=== PATIENT | male | born 1935 | race Caucasian/White ===

== ENCOUNTER 2020-04-08 15:55 | Emergency (ER) | payer MEDICARE ==
[~2020-04-08] VITALS: Ht 170.2 cm; Wt 96.0 kg
[2020-04-08 15:58] VITALS: BP 140/60
[2020-04-08] MEDS ORDERED: BACITRACIN 15GM TUBE TOP ONE ×2 (16:45→18:00)
[2020-04-08] MEDS ORDERED: ACETAMINOPHEN 325MG TABLET PO ONE (17:30)
[2020-04-08] MEDS: BACITRACIN ZINC OINT UDPKT TOP NR ×2 (17:47→18:44)
== END 2020-04-08 19:19 | disposition home or self-care (01) ==
LOC: ER 15:55
DX: S40.021A Contusion of right upper arm, initial encounter (principal); E11.9 Type 2 diabetes mellitus without complications; I10 Essential (primary) hypertension; W18.09XA Striking against other object with subsequent fall, initial encounter; Y93.89 Activity, other specified; Y92.89 Other specified places as the place of occurrence of the external cause; Z95.0 Presence of cardiac pacemaker
CPT/HCPCS: 73090; 99283

== ENCOUNTER 2020-04-10 09:37 | Emergency (ER) | payer MEDICARE ==
[~2020-04-10] VITALS: Ht 175.3 cm; Wt 94.0 kg
[2020-04-10 09:52] VITALS: BP 131/51
[2020-04-10] MEDS ORDERED: BACITRACIN ZINC OINT UDPKT TOP ONE (10:15)
== END 2020-04-10 10:47 | disposition home or self-care (01) ==
LOC: ER 09:37
DX: S51.811D Laceration without foreign body of right forearm, subsequent encounter (principal); W18.39XD Other fall on same level, subsequent encounter; J45.909 Unspecified asthma, uncomplicated; J44.9 Chronic obstructive pulmonary disease, unspecified; E11.9 Type 2 diabetes mellitus without complications; Z95.0 Presence of cardiac pacemaker; Z98.890 Other specified postprocedural states
CPT/HCPCS: 99283

== ENCOUNTER 2020-11-22 12:21 | Inpatient (IN) | payer MEDICARE, OTHER, MEDICAID ==
[~2020-11-22] VITALS: Ht 175.3 cm; Wt 94.3 kg
[2020-11-22] MEDS ORDERED: SODIUM CHLORIDE 0.9% 1,000 ML IV ONE (13:15)
[2020-11-22 14:45] LABS: HEMATOCRIT. 36.4 % (42.0-52.0); HEMOGLOBIN. 11.6 g/dL (14.0-18.0); MEAN CORPUSCULAR HEMOGLOBIN 28.8 pg (28.0-32.0); MEAN CORPUSCULAR VOLUME 90.1 fL (80.0-94.0); MEAN PLATELET VOLUME 7.6 fl (7.4-10.4); PLATELET 148 x1000/uL (130-400); RED BLOOD CELL COUNT 4.04 mill/uL (4.7-6.1); RED CELL DISTRIBUTION WIDTH 18.8 % (11.6-14.6)
[2020-11-22 16:36] LABS: PLATELET ESTIMATE NORMAL
[2020-11-22] MEDS ORDERED: DEXTROSE 50% WATER 50ML SYRINGE IV PRN (20:45)
[2020-11-22] MEDS ORDERED: MAGNESIUM/ALUMINUM HYDROXIDE/SIMETHICONE 30ML UDC PO PRN (20:45)
[2020-11-22] MEDS ORDERED: IPRATROPIUM/ALBUTEROL 0.5-3(2.5)MG/3ML NEB NEB PRN (20:45)
[2020-11-22] MEDS ORDERED: NA PHOS,M-B/NA PHOS,DI-BA ENEMA 118ML PR PRN (20:45)
[2020-11-22] MEDS ORDERED: ONDANSETRON HCL 4MG/2ML INJ IV PRN (20:45)
[2020-11-22] MEDS ORDERED: GUAIFENESIN 200MG/10ML SUGAR FREE UDC PO PRN (20:45)
[2020-11-22] MEDS ORDERED: DOCUSATE SODIUM 100MG CAPSULE PO PRN (20:45)
[2020-11-22] MEDS ORDERED: MORPHINE SULFATE 2 MG/ML CPJ (NOT FOR IM USE) IV PRN (20:45)
[2020-11-22] MEDS ORDERED: HYDRALAZINE 20MG/ML VIAL IV PRN (20:45)
[2020-11-22] MEDS ORDERED: DIPHENHYDRAMINE 50MG/ML VIAL IV PRN (20:45)
[2020-11-22] MEDS ORDERED: LORAZEPAM 2MG/ML CPJ IV PRN (20:45)
[2020-11-22] MEDS: BLOOD SUGAR DIAGNOSTIC STRIP TEST SCH (21:00)
[2020-11-22] MEDS: INSULIN LISPRO 100 UNITS/ML SUBCUT SCH (21:00)
[2020-11-22] MEDS: SODIUM CHLORIDE 0.9% INJ 3ML FLUSH IVF SCH (22:00)
[2020-11-23 05:19] LABS: HEMATOCRIT. 38.8 % (42.0-52.0); HEMOGLOBIN. 12.2 g/dL (14.0-18.0); MEAN CORPUSCULAR HEMOGLOBIN 28.4 pg (28.0-32.0); MEAN CORPUSCULAR VOLUME 90.1 fL (80.0-94.0); PLATELET 155 x1000/uL (130-400); RED CELL DISTRIBUTION WIDTH 18.6 % (11.6-14.6)
[2020-11-23 05:44] LABS: CHLORIDE 106 mEq/L (98-107)
[2020-11-23] MEDS: SODIUM CHLORIDE 0.9% INJ 3ML FLUSH IVF SCH ×3 (06:53→21:55)
[2020-11-23] MEDS: BLOOD SUGAR DIAGNOSTIC STRIP TEST SCH ×4 (07:08→20:24)
[2020-11-23] MEDS: INSULIN LISPRO 100 UNITS/ML SUBCUT SCH ×4 (07:33→21:00)
[2020-11-23] MEDS ORDERED: ENOXAPARIN 40MG/0.4ML SYR SUBCUT SCH (09:00)
[2020-11-23 10:46] LABS: PLATELET ESTIMATE NORMAL
[2020-11-23] MEDS: ACETAMINOPHEN 325MG TABLET PO PRN (11:53)
[2020-11-23 12:00] VITALS: BP 109/50
[2020-11-23] MEDS ORDERED: SODIUM POLYSTYRENE SULFONATE 15 G/60 ML BOT PO SCH (14:00)
[2020-11-23 15:45] VITALS: BP 109/50
[2020-11-23 16:00] VITALS: BP 111/70
[2020-11-23 16:01] LABS: CREATINE KINASE 259 IU/L (39-308)
[2020-11-23] MEDS: SODIUM CHLORIDE 0.45% 1,000 ML IV SCH (16:56)
[2020-11-23] MEDS: ENOXAPARIN 30MG/0.3ML SYR SUBCUT SCH (16:57)
[2020-11-23 20:00] VITALS: BP 138/66
[2020-11-24] VITALS: BP 133/65
[2020-11-24] MEDS: SODIUM CHLORIDE 0.45% 1,000 ML IV SCH ×2 (01:43→16:39)
[2020-11-24 04:00] VITALS: BP 99/51
[2020-11-24] MEDS: SODIUM CHLORIDE 0.9% INJ 3ML FLUSH IVF SCH ×3 (05:17→21:49)
[2020-11-24] MEDS: BLOOD SUGAR DIAGNOSTIC STRIP TEST SCH ×4 (07:20→21:11)
[2020-11-24] MEDS: INSULIN LISPRO 100 UNITS/ML SUBCUT SCH ×5 (07:50→21:48)
[2020-11-24 08:00] VITALS: BP 125/57
[2020-11-24] MEDS ORDERED: OMEPRAZOLE 20MG CAPSULE EXTENDED RELEASE PO SCH (11:00)
[2020-11-24] MEDS: ENOXAPARIN 30MG/0.3ML SYR SUBCUT SCH (11:29)
[2020-11-24] MEDS: ACETAMINOPHEN 325MG TABLET PO PRN ×4 (11:35→17:44)
[2020-11-24 12:00] VITALS: BP 105/54
[2020-11-24 12:48] LABS: HEMATOCRIT. 33.2 % (42.0-52.0); HEMOGLOBIN. 10.8 g/dL (14.0-18.0); MEAN CORPUSCULAR HEMOGLOBIN 28.9 pg (28.0-32.0); MEAN CORPUSCULAR VOLUME 89.1 fL (80.0-94.0); PLATELET 149 x1000/uL (130-400); RED BLOOD CELL COUNT 3.73 mill/uL (4.7-6.1); RED CELL DISTRIBUTION WIDTH 18.4 % (11.6-14.6)
[2020-11-24 17:03] LABS: PLATELET ESTIMATE NORMAL
[2020-11-24 20:00] VITALS: BP 94/41
[2020-11-25] VITALS: BP 100/49
[2020-11-25 04:00] VITALS: BP 106/51
[2020-11-25 06:06] LABS: HEMATOCRIT. 35.1 % (42.0-52.0); HEMOGLOBIN. 11.2 g/dL (14.0-18.0); MEAN CORPUSCULAR HEMOGLOBIN 28.2 pg (28.0-32.0); MEAN CORPUSCULAR VOLUME 88.2 fL (80.0-94.0); MEAN PLATELET VOLUME 8.1 fl (7.4-10.4); PLATELET 142 x1000/uL (130-400); RED BLOOD CELL COUNT 3.98 mill/uL (4.7-6.1); RED CELL DISTRIBUTION WIDTH 18.3 % (11.6-14.6)
[2020-11-25] MEDS: INSULIN LISPRO 100 UNITS/ML SUBCUT SCH ×4 (07:50→20:49)
[2020-11-25 08:00] VITALS: BP 120/57
[2020-11-25] MEDS: BLOOD SUGAR DIAGNOSTIC STRIP TEST SCH ×4 (08:05→20:48)
[2020-11-25 10:10] LABS: ANTI-NUCLEAR ANTIBODIES DIRECT Negative (Negative)
[2020-11-25] MEDS: SODIUM CHLORIDE 0.9% 1,000 ML IV SCH ×2 (10:15→23:35)
[2020-11-25 12:00] VITALS: BP 120/57
[2020-11-25 14:09] LABS: PLATELET ESTIMATE NORMAL
[2020-11-25 22:55] VITALS: BP 138/65
[2020-11-26 01:38] VITALS: BP 116/53
[2020-11-26 04:00] VITALS: BP 137/60
[2020-11-26] MEDS: BLOOD SUGAR DIAGNOSTIC STRIP TEST SCH ×4 (06:33→21:00)
[2020-11-26 07:24] LABS: HEMATOCRIT. 32.2 % (42.0-52.0); HEMOGLOBIN. 10.2 g/dL (14.0-18.0); MEAN CORPUSCULAR HEMOGLOBIN 28.2 pg (28.0-32.0); MEAN CORPUSCULAR VOLUME 88.5 fL (80.0-94.0); MEAN PLATELET VOLUME 8.5 fl (7.4-10.4); PLATELET 155 x1000/uL (130-400); RED BLOOD CELL COUNT 3.64 mill/uL (4.7-6.1); RED CELL DISTRIBUTION WIDTH 18.6 % (11.6-14.6)
[2020-11-26] MEDS: INSULIN LISPRO 100 UNITS/ML SUBCUT SCH ×4 (07:41→22:16)
[2020-11-26 08:00] VITALS: BP 130/56
[2020-11-26] MEDS: ENOXAPARIN 40MG/0.4ML SYR SUBCUT SCH (08:57)
[2020-11-26] MEDS: SODIUM CHLORIDE 0.9% INJ 3ML FLUSH IVF SCH ×2 (13:17→22:15)
[2020-11-26 14:30] LABS: PLATELET ESTIMATE NORMAL
[2020-11-26 16:00] VITALS: BP 123/62
[2020-11-26 20:00] VITALS: BP 97/59
[2020-11-26] MEDS: HYDROCODONE/ACETAMINOPHEN 5/325MG TABLET PO PRN (22:15)
[2020-11-27] VITALS: BP 132/57
[2020-11-27 04:00] VITALS: BP 124/55
[2020-11-27] MEDS: SODIUM CHLORIDE 0.9% INJ 3ML FLUSH IVF SCH ×2 (06:36→21:06)
[2020-11-27] MEDS: BLOOD SUGAR DIAGNOSTIC STRIP TEST SCH ×4 (07:20→21:00)
[2020-11-27] MEDS: INSULIN LISPRO 100 UNITS/ML SUBCUT SCH ×4 (07:50→22:00)
[2020-11-27 08:00] VITALS: BP 154/70
[2020-11-27 08:25] LABS: HEMATOCRIT. 32.8 % (42.0-52.0); HEMOGLOBIN. 10.6 g/dL (14.0-18.0); MEAN CORPUSCULAR HEMOGLOBIN 28.6 pg (28.0-32.0); MEAN CORPUSCULAR VOLUME 88.2 fL (80.0-94.0); MEAN PLATELET VOLUME 8.3 fl (7.4-10.4); PLATELET 162 x1000/uL (130-400); RED BLOOD CELL COUNT 3.72 mill/uL (4.7-6.1); RED CELL DISTRIBUTION WIDTH 18.6 % (11.6-14.6)
[2020-11-27] MEDS ORDERED: CEFTRIAXONE 1,000 MG in DEXTROSE 5% WATER 50 ML IV SCH (09:00)
[2020-11-27] MEDS ORDERED: CEFTRIAXONE 1 G PREMIX 50 ML IV SCH (09:00)
[2020-11-27] MEDS: ENOXAPARIN 40MG/0.4ML SYR SUBCUT SCH (11:44)
[2020-11-27] MEDS: CEFTRIAXONE 1,000 MG in DEXTROSE 5% WATER 50 ML IV SCH (11:45)
[2020-11-27] MEDS: HYDROCODONE/ACETAMINOPHEN 5/325MG TABLET PO PRN (12:00)
[2020-11-27 20:00] VITALS: BP 105/60
[2020-11-28] VITALS: BP 105/60
[2020-11-28 04:00] VITALS: BP 127/54
[2020-11-28] MEDS: SODIUM CHLORIDE 0.9% INJ 3ML FLUSH IVF SCH ×3 (05:34→22:42)
[2020-11-28] MEDS: INSULIN LISPRO 100 UNITS/ML SUBCUT SCH ×4 (07:50→20:44)
[2020-11-28 08:00] VITALS: BP 107/61
[2020-11-28] MEDS: BLOOD SUGAR DIAGNOSTIC STRIP TEST SCH ×4 (08:14→20:44)
[2020-11-28] MEDS: ENOXAPARIN 40MG/0.4ML SYR SUBCUT SCH (09:32)
[2020-11-28 12:00] VITALS: BP 105/73
[2020-11-28] MEDS: CEFTRIAXONE 1,000 MG in DEXTROSE 5% WATER 50 ML IV SCH (12:29)
[2020-11-28 16:00] VITALS: BP 107/64
[2020-11-28 16:51] LABS: PLATELET ESTIMATE NORMAL
[2020-11-28 20:00] VITALS: BP 100/58
[2020-11-29] VITALS (7 sets, daily range): BP systolic 74–146; BP diastolic 43–69
[2020-11-29] MEDS: SODIUM CHLORIDE 0.9% INJ 3ML FLUSH IVF SCH ×3 (05:34→21:35)
[2020-11-29] MEDS: BLOOD SUGAR DIAGNOSTIC STRIP TEST SCH ×4 (06:30→21:33)
[2020-11-29] MEDS: INSULIN LISPRO 100 UNITS/ML SUBCUT SCH ×4 (07:31→21:35)
[2020-11-29] MEDS: ENOXAPARIN 40MG/0.4ML SYR SUBCUT SCH (09:59)
[2020-11-29] MEDS: CEFTRIAXONE 1,000 MG in DEXTROSE 5% WATER 50 ML IV SCH (11:24)
[2020-11-29] MEDS: ACETAMINOPHEN 325MG TABLET PO PRN (17:44)
[2020-11-30] VITALS: BP 131/63
[2020-11-30 04:00] VITALS: BP 156/69
[2020-11-30] MEDS: SODIUM CHLORIDE 0.9% INJ 3ML FLUSH IVF SCH ×3 (06:25→21:01)
[2020-11-30] MEDS: BLOOD SUGAR DIAGNOSTIC STRIP TEST SCH ×4 (06:26→21:01)
[2020-11-30 06:30] LABS: HEMATOCRIT. 33.6 % (42.0-52.0); HEMOGLOBIN. 10.8 g/dL (14.0-18.0); MEAN CORPUSCULAR HEMOGLOBIN 28.3 pg (28.0-32.0); MEAN CORPUSCULAR VOLUME 88.2 fL (80.0-94.0); PLATELET 203 x1000/uL (130-400); RED BLOOD CELL COUNT 3.81 mill/uL (4.7-6.1); RED CELL DISTRIBUTION WIDTH 18.3 % (11.6-14.6)
[2020-11-30] MEDS: INSULIN LISPRO 100 UNITS/ML SUBCUT SCH ×4 (07:50→21:00)
[2020-11-30 08:00] VITALS: BP 150/64
[2020-11-30] MEDS: ENOXAPARIN 40MG/0.4ML SYR SUBCUT SCH (08:55)
[2020-11-30] MEDS: CEFTRIAXONE 1,000 MG in DEXTROSE 5% WATER 50 ML IV SCH (11:32)
[2020-11-30 12:00] VITALS: BP 112/60
[2020-11-30 14:52] LABS: ATYPICAL LYMPHOCYTES 1
[2020-11-30 14:53] LABS: PLATELET ESTIMATE NORMAL
[2020-11-30 16:00] VITALS: BP 118/65
[2020-11-30 20:00] VITALS: BP 103/52
[2020-12-01] VITALS: BP 107/68
[2020-12-01 04:00] VITALS: BP_SYST 98; BP_DIAS 61; BP_DIAS 66
[2020-12-01] MEDS: SODIUM CHLORIDE 0.9% INJ 3ML FLUSH IVF SCH ×3 (05:34→22:00)
[2020-12-01] MEDS: BLOOD SUGAR DIAGNOSTIC STRIP TEST SCH ×4 (06:36→20:37)
[2020-12-01 08:00] VITALS: BP 105/60
[2020-12-01] MEDS: ENOXAPARIN 40MG/0.4ML SYR SUBCUT SCH (08:40)
[2020-12-01] MEDS: INSULIN LISPRO 100 UNITS/ML SUBCUT SCH ×4 (08:45→21:44)
[2020-12-01] MEDS: CEFTRIAXONE 1,000 MG in DEXTROSE 5% WATER 50 ML IV SCH (11:53)
[2020-12-01 12:00] VITALS: BP 118/60
[2020-12-01 16:00] VITALS: BP 110/55
[2020-12-01 20:00] VITALS: BP 119/56
[2020-12-02] VITALS: BP 101/54
[2020-12-02 04:00] VITALS: BP 123/72
[2020-12-02] MEDS: SODIUM CHLORIDE 0.9% INJ 3ML FLUSH IVF SCH ×3 (05:08→21:29)
[2020-12-02] MEDS: BLOOD SUGAR DIAGNOSTIC STRIP TEST SCH ×4 (07:05→21:29)
[2020-12-02] MEDS: INSULIN LISPRO 100 UNITS/ML SUBCUT SCH ×4 (07:50→21:28)
[2020-12-02 08:00] VITALS: BP 124/62
[2020-12-02] MEDS: ENOXAPARIN 40MG/0.4ML SYR SUBCUT SCH (09:27)
[2020-12-02] MEDS: CEFTRIAXONE 1,000 MG in DEXTROSE 5% WATER 50 ML IV SCH (11:12)
[2020-12-02 12:00] VITALS: BP 104/59
[2020-12-02 16:00] VITALS: BP 97/45
[2020-12-02 20:00] VITALS: BP 97/51
[2020-12-03] VITALS: BP 97/52
[2020-12-03 04:00] VITALS: BP 106/54
[2020-12-03] MEDS: SODIUM CHLORIDE 0.9% INJ 3ML FLUSH IVF SCH ×3 (06:39→21:50)
[2020-12-03] MEDS: BLOOD SUGAR DIAGNOSTIC STRIP TEST SCH ×4 (06:39→21:50)
[2020-12-03] MEDS: INSULIN LISPRO 100 UNITS/ML SUBCUT SCH ×4 (07:50→21:52)
[2020-12-03 08:00] VITALS: BP 99/54
[2020-12-03] MEDS: ENOXAPARIN 40MG/0.4ML SYR SUBCUT SCH (09:30)
[2020-12-03 12:00] VITALS: BP 107/43
[2020-12-03 20:00] VITALS: BP 109/45
[2020-12-04] VITALS: BP 104/55
[2020-12-04 04:00] VITALS: BP 159/68
[2020-12-04] MEDS: SODIUM CHLORIDE 0.9% INJ 3ML FLUSH IVF SCH ×3 (06:07→21:19)
[2020-12-04] MEDS: BLOOD SUGAR DIAGNOSTIC STRIP TEST SCH ×4 (06:32→20:23)
[2020-12-04] MEDS: INSULIN LISPRO 100 UNITS/ML SUBCUT SCH ×4 (07:50→20:36)
[2020-12-04 08:00] VITALS: BP 168/76
[2020-12-04] MEDS: CLONIDINE 0.1MG TABLET PO PRN (08:44)
[2020-12-04] MEDS: ENOXAPARIN 40MG/0.4ML SYR SUBCUT SCH (08:45)
[2020-12-04 12:00] VITALS: BP 123/59
[2020-12-04 16:00] VITALS: BP 124/55
[2020-12-04 20:00] VITALS: BP 143/69
[2020-12-04] MEDS: SULFAMETHOXAZOLE/TRIMETHOPRIM 800/160MG TABLET PO SCH (20:22)
[2020-12-04] MEDS ORDERED: HYDRALAZINE 10 MG in SODIUM CHLORIDE 0.9% 49.5 ML IV PRN (21:45)
[2020-12-05 04:00] VITALS: BP 144/69
[2020-12-05] MEDS: BLOOD SUGAR DIAGNOSTIC STRIP TEST SCH ×4 (06:28→20:38)
[2020-12-05] MEDS: SODIUM CHLORIDE 0.9% INJ 3ML FLUSH IVF SCH ×3 (06:28→21:35)
[2020-12-05 07:27] LABS: BASOPHILS % 0.5 % (0.0-2.0); EOSINOPHILS % 0.6 % (0.0-5.0); HEMATOCRIT. 31.6 % (42.0-52.0); HEMOGLOBIN. 10.2 g/dL (14.0-18.0); LYMPHOCYTES % 7.2 % (20.0-50.0); MEAN CORPUSCULAR HEMOGLOBIN 28.5 pg (28.0-32.0); MEAN CORPUSCULAR VOLUME 88.6 fL (80.0-94.0); MEAN PLATELET VOLUME 7.6 fl (7.4-10.4); MONOCYTES % 6.2 % (2.0-8.0); NEUTROPHILS % 85.5 % (40.0-76.0); PLATELET 215 x1000/uL (130-400); RED BLOOD CELL COUNT 3.57 mill/uL (4.7-6.1); RED CELL DISTRIBUTION WIDTH 18.4 % (11.6-14.6)
[2020-12-05 07:44] LABS: CHLORIDE 108 mEq/L (98-107)
[2020-12-05] MEDS: INSULIN LISPRO 100 UNITS/ML SUBCUT SCH ×4 (07:50→20:46)
[2020-12-05 08:00] VITALS: BP 123/57
[2020-12-05] MEDS: ENOXAPARIN 40MG/0.4ML SYR SUBCUT SCH (09:21)
[2020-12-05] MEDS: SULFAMETHOXAZOLE/TRIMETHOPRIM 800/160MG TABLET PO SCH ×2 (09:21→20:34)
[2020-12-05 12:00] VITALS: BP 128/58
[2020-12-05 16:00] VITALS: BP 150/68
[2020-12-05 20:00] VITALS: BP 136/74
[2020-12-06] VITALS: BP 132/70
[2020-12-06 04:00] VITALS: BP 132/79
[2020-12-06] MEDS: SODIUM CHLORIDE 0.9% INJ 3ML FLUSH IVF SCH ×2 (05:58→13:18)
[2020-12-06] MEDS: BLOOD SUGAR DIAGNOSTIC STRIP TEST SCH ×4 (06:32→21:00)
[2020-12-06 07:07] LABS: BASOPHILS % 0.6 % (0.0-2.0); EOSINOPHILS % 0.5 % (0.0-5.0); HEMATOCRIT. 32.4 % (42.0-52.0); HEMOGLOBIN. 10.2 g/dL (14.0-18.0); LYMPHOCYTES % 7.2 % (20.0-50.0); MEAN CORPUSCULAR HEMOGLOBIN 28.2 pg (28.0-32.0); MEAN CORPUSCULAR VOLUME 89.4 fL (80.0-94.0); MEAN PLATELET VOLUME 8.1 fl (7.4-10.4); MONOCYTES % 7.1 % (2.0-8.0); NEUTROPHILS % 84.6 % (40.0-76.0); PLATELET 204 x1000/uL (130-400); RED BLOOD CELL COUNT 3.63 mill/uL (4.7-6.1); RED CELL DISTRIBUTION WIDTH 18.5 % (11.6-14.6)
[2020-12-06] MEDS: INSULIN LISPRO 100 UNITS/ML SUBCUT SCH ×4 (07:23→21:00)
[2020-12-06 07:43] LABS: CHLORIDE 110 mEq/L (98-107)
[2020-12-06 08:00] VITALS: BP 114/66
[2020-12-06] MEDS: ENOXAPARIN 40MG/0.4ML SYR SUBCUT SCH (09:06)
[2020-12-06] MEDS: SULFAMETHOXAZOLE/TRIMETHOPRIM 800/160MG TABLET PO SCH (09:06)
[2020-12-06] MEDS ORDERED: IOHEXOL-350 100 ML BOTTLE ONE ×2 (11:15→11:46)
[2020-12-06 16:00] VITALS: BP 127/68
[2020-12-06 20:00] VITALS: BP 101/68
[2020-12-07] VITALS: BP 115/73
[2020-12-07] MEDS: ACETAMINOPHEN 325MG TABLET PO PRN (01:22)
[2020-12-07] MEDS: SULFAMETHOXAZOLE/TRIMETHOPRIM 800/160MG TABLET PO SCH ×3 (01:22→21:13)
[2020-12-07] MEDS: SODIUM CHLORIDE 0.9% INJ 3ML FLUSH IVF SCH ×4 (01:59→21:14)
[2020-12-07 04:00] VITALS: BP 138/55
[2020-12-07] MEDS: BLOOD SUGAR DIAGNOSTIC STRIP TEST SCH ×4 (06:03→21:13)
[2020-12-07 07:17] LABS: CHLORIDE 109 mEq/L (98-107)
[2020-12-07 07:28] LABS: BASOPHILS % 0.6 % (0.0-2.0); EOSINOPHILS % 0.5 % (0.0-5.0); HEMATOCRIT. 32.5 % (42.0-52.0); HEMOGLOBIN. 10.3 g/dL (14.0-18.0); LYMPHOCYTES % 7.9 % (20.0-50.0); MEAN CORPUSCULAR HEMOGLOBIN 27.9 pg (28.0-32.0); MEAN PLATELET VOLUME 7.8 fl (7.4-10.4); MONOCYTES % 7.3 % (2.0-8.0); NEUTROPHILS % 83.7 % (40.0-76.0); PLATELET 218 x1000/uL (130-400); RED BLOOD CELL COUNT 3.69 mill/uL (4.7-6.1); RED CELL DISTRIBUTION WIDTH 18.2 % (11.6-14.6)
[2020-12-07] MEDS: INSULIN LISPRO 100 UNITS/ML SUBCUT SCH ×4 (07:50→21:00)
[2020-12-07 08:00] VITALS: BP 150/64
[2020-12-07] MEDS: ENOXAPARIN 30MG/0.3ML SYR SUBCUT SCH ×2 (10:30→21:13)
[2020-12-07 12:00] VITALS: BP 159/68
[2020-12-07] MEDS ORDERED: SODIUM POLYSTYRENE SULFONATE 15 G/60 ML BOT PO NR (12:30)
[2020-12-07 16:00] VITALS: BP 159/70
[2020-12-07 20:00] VITALS: BP 167/75
[2020-12-08] VITALS: BP 150/69
[2020-12-08 04:00] VITALS: BP 146/64
[2020-12-08 06:26] LABS: INR 1.2; PARTIAL THROMBOPLASTIN TIME 34.7 sec (23.4-31.0); PROTHROMBIN TIME 12.7 sec (9.6-11.0)
[2020-12-08] MEDS: BLOOD SUGAR DIAGNOSTIC STRIP TEST SCH ×4 (06:26→21:26)
[2020-12-08] MEDS: SODIUM CHLORIDE 0.9% INJ 3ML FLUSH IVF SCH ×3 (06:26→21:28)
[2020-12-08 06:40] LABS: BASOPHILS % 0.8 % (0.0-2.0); EOSINOPHILS % 0.9 % (0.0-5.0); HEMATOCRIT. 30.9 % (42.0-52.0); HEMOGLOBIN. 10.2 g/dL (14.0-18.0); LYMPHOCYTES % 9.2 % (20.0-50.0); MEAN CORPUSCULAR HEMOGLOBIN 29.2 pg (28.0-32.0); MEAN CORPUSCULAR VOLUME 88.8 fL (80.0-94.0); MEAN PLATELET VOLUME 7.8 fl (7.4-10.4); MONOCYTES % 6.5 % (2.0-8.0); NEUTROPHILS % 82.6 % (40.0-76.0); PLATELET 209 x1000/uL (130-400); RED BLOOD CELL COUNT 3.48 mill/uL (4.7-6.1); RED CELL DISTRIBUTION WIDTH 18.4 % (11.6-14.6)
[2020-12-08] MEDS: INSULIN LISPRO 100 UNITS/ML SUBCUT SCH ×4 (07:50→21:27)
[2020-12-08 08:00] VITALS: BP 150/70
[2020-12-08] MEDS: ENOXAPARIN 30MG/0.3ML SYR SUBCUT SCH ×2 (09:00→21:26)
[2020-12-08] MEDS: SULFAMETHOXAZOLE/TRIMETHOPRIM 800/160MG TABLET PO SCH ×2 (09:15→21:26)
[2020-12-08] MEDS: ACETAMINOPHEN 325MG TABLET PO PRN (11:10)
[2020-12-08 12:00] VITALS: BP 153/69
[2020-12-08] MEDS ORDERED: HEPARIN SODIUM 1,000 UNIT/1ML VIAL IV ONE (13:00)
[2020-12-08] MEDS ORDERED: MIDAZOLAM HCL 2 MG/2 ML VIAL ONE ×2 (13:01→14:42)
[2020-12-08] MEDS ORDERED: IODIXANOL 320MG/ML 100 ML BOTTLE IV ONE (13:02)
[2020-12-08] MEDS ORDERED: FENTANYL CITRATE/PF 50MCG/ML 2ML VIAL ONE ×2 (13:02→14:42)
[2020-12-08] MEDS ORDERED: LIDOCAINE HCL 1% 20ML VIAL (Pyxis) INJ ONE (13:02)
[2020-12-08] MEDS ORDERED: IOHEXOL-300 100 ML BOTTLE ONE (13:51)
[2020-12-08] MEDS: CLOPIDOGREL 75MG TABLET PO SCH (15:04)
[2020-12-08 16:00] VITALS: BP 153/62
[2020-12-08 20:00] VITALS: BP 119/74
[2020-12-09] VITALS: BP 99/60
[2020-12-09 04:00] VITALS: BP 104/65
[2020-12-09] MEDS: SODIUM CHLORIDE 0.9% INJ 3ML FLUSH IVF SCH ×3 (06:07→21:56)
[2020-12-09] MEDS: BLOOD SUGAR DIAGNOSTIC STRIP TEST SCH ×4 (06:25→21:52)
[2020-12-09 06:55] LABS: BASOPHILS % 0.6 % (0.0-2.0); EOSINOPHILS % 0.7 % (0.0-5.0); HEMATOCRIT. 32.5 % (42.0-52.0); HEMOGLOBIN. 10.2 g/dL (14.0-18.0); LYMPHOCYTES % 9.2 % (20.0-50.0); MEAN CORPUSCULAR VOLUME 89.1 fL (80.0-94.0); MEAN PLATELET VOLUME 7.5 fl (7.4-10.4); MONOCYTES % 7.6 % (2.0-8.0); NEUTROPHILS % 81.9 % (40.0-76.0); PLATELET 206 x1000/uL (130-400); RED BLOOD CELL COUNT 3.65 mill/uL (4.7-6.1); RED CELL DISTRIBUTION WIDTH 18.3 % (11.6-14.6)
[2020-12-09 08:00] VITALS: BP 130/46
[2020-12-09] MEDS: CLOPIDOGREL 75MG TABLET PO SCH (09:08)
[2020-12-09] MEDS: SULFAMETHOXAZOLE/TRIMETHOPRIM 800/160MG TABLET PO SCH ×2 (09:08→21:54)
[2020-12-09] MEDS: ENOXAPARIN 30MG/0.3ML SYR SUBCUT SCH ×2 (09:09→21:53)
[2020-12-09 12:00] VITALS: BP 127/79
[2020-12-09] MEDS: INSULIN LISPRO 100 UNITS/ML SUBCUT SCH ×3 (12:50→21:00)
[2020-12-09 16:00] VITALS: BP 115/70
[2020-12-09] MEDS: ACETAMINOPHEN 325MG TABLET PO PRN (17:43)
[2020-12-10] VITALS (7 sets, daily range): BP systolic 104–150; BP diastolic 59–91
[2020-12-10] MEDS: SODIUM CHLORIDE 0.9% INJ 3ML FLUSH IVF SCH ×3 (06:19→22:47)
[2020-12-10] MEDS: BLOOD SUGAR DIAGNOSTIC STRIP TEST SCH ×4 (06:38→21:00)
[2020-12-10] MEDS: INSULIN LISPRO 100 UNITS/ML SUBCUT SCH ×4 (06:54→21:00)
[2020-12-10] MEDS: SULFAMETHOXAZOLE/TRIMETHOPRIM 800/160MG TABLET PO SCH (09:37)
[2020-12-10] MEDS: CLOPIDOGREL 75MG TABLET PO SCH (09:37)
[2020-12-10] MEDS: ENOXAPARIN 30MG/0.3ML SYR SUBCUT SCH ×2 (09:39→22:46)
[2020-12-11] VITALS: BP 116/61
[2020-12-11 04:00] VITALS: BP 90/50
[2020-12-11] MEDS: BLOOD SUGAR DIAGNOSTIC STRIP TEST SCH ×4 (06:25→21:00)
[2020-12-11] MEDS: SODIUM CHLORIDE 0.9% INJ 3ML FLUSH IVF SCH ×3 (06:25→21:02)
[2020-12-11] MEDS: INSULIN LISPRO 100 UNITS/ML SUBCUT SCH ×4 (07:50→21:00)
[2020-12-11 08:00] VITALS: BP 177/82
[2020-12-11] MEDS: CLOPIDOGREL 75MG TABLET PO SCH (10:11)
[2020-12-11] MEDS: ENOXAPARIN 30MG/0.3ML SYR SUBCUT SCH ×2 (10:12→21:01)
[2020-12-11] MEDS: CLONIDINE 0.1MG TABLET PO PRN (11:43)
[2020-12-11 12:00] VITALS: BP 173/85
[2020-12-11 16:00] VITALS: BP 128/65
[2020-12-11] MEDS: POLYVINYL ALCOHOL OPHTH DROPS 15ML BOTHEYE PRN ×2 (17:03→18:58)
[2020-12-11 20:00] VITALS: BP 144/63
[2020-12-11] MEDS: SULFAMETHOXAZOLE/TRIMETHOPRIM 800/160MG TABLET PO SCH (21:01)
[2020-12-12] VITALS: BP 157/69
[2020-12-12 04:00] VITALS: BP 156/72
[2020-12-12] MEDS: SODIUM CHLORIDE 0.9% INJ 3ML FLUSH IVF SCH (05:01)
[2020-12-12] MEDS: BLOOD SUGAR DIAGNOSTIC STRIP TEST SCH ×2 (07:14→12:20)
[2020-12-12] MEDS: INSULIN LISPRO 100 UNITS/ML SUBCUT SCH ×2 (07:38→12:20)
[2020-12-12 08:00] VITALS: BP 148/108
[2020-12-12] MEDS: SULFAMETHOXAZOLE/TRIMETHOPRIM 800/160MG TABLET PO SCH (08:42)
[2020-12-12] MEDS: ENOXAPARIN 30MG/0.3ML SYR SUBCUT SCH (08:42)
[2020-12-12] MEDS: CLOPIDOGREL 75MG TABLET PO SCH (08:42)
[2020-12-12] MEDS: POLYVINYL ALCOHOL OPHTH DROPS 15ML BOTHEYE PRN (08:43)
[2020-12-12] MEDS: CLONIDINE 0.1MG TABLET PO PRN (08:51)
[2020-12-12 12:00] VITALS: BP 114/60
[2020-12-12 12:56] VITALS: BP 114/83
== END 2020-12-12 13:14 | DRG 252 ==
LOC: ER 12:44 → MICUSO 16:14 → 6EST 11-23 10:55
PROVIDERS: ADMIT Internal Medicine; ATTEND Internal Medicine
PROC: 02HV33Z Insertion of Infusion Device into Superior Vena Cava, Percutaneous Approach (ICD-10-PCS; 2020-12-06)
PROC: B548ZZA Ultrasonography of Superior Vena Cava, Guidance (ICD-10-PCS; 2020-12-06)
PROC: B41G1ZZ Fluoroscopy of Left Lower Extremity Arteries using Low Osmolar Contrast (ICD-10-PCS; principal; 2020-12-08)
PROC: 047N3ZZ Dilation of Left Popliteal Artery, Percutaneous Approach (ICD-10-PCS; 2020-12-08)
PROC: B41J1ZZ Fluoroscopy of Other Lower Arteries using Low Osmolar Contrast (ICD-10-PCS; 2020-12-08)
PROC: 04HL33Z Insertion of Infusion Device into Left Femoral Artery, Percutaneous Approach (ICD-10-PCS; 2020-12-08)
PROC: 047U3ZZ Dilation of Left Peroneal Artery, Percutaneous Approach (ICD-10-PCS; 2020-12-08)
DX: I70.249 Atherosclerosis of native arteries of left leg with ulceration of unspecified site (principal); N17.0 Acute kidney failure with tubular necrosis; E43 Unspecified severe protein-calorie malnutrition; L03.116 Cellulitis of left lower limb; R65.10 Systemic inflammatory response syndrome (SIRS) of non-infectious origin without acute organ dysfunction; E11.51 Type 2 diabetes mellitus with diabetic peripheral angiopathy without gangrene; M47.899 Other spondylosis, site unspecified; M48.061 Spinal stenosis, lumbar region without neurogenic claudication; E86.9 Volume depletion, unspecified; E11.22 Type 2 diabetes mellitus with diabetic chronic kidney disease; N18.9 Chronic kidney disease, unspecified; I12.9 Hypertensive chronic kidney disease with stage 1 through stage 4 chronic kidney disease, or unspecified chronic kidney disease; I25.10 Atherosclerotic heart disease of native coronary artery without angina pectoris; M48.02 Spinal stenosis, cervical region; D64.9 Anemia, unspecified; I87.2 Venous insufficiency (chronic) (peripheral); I87.8 Other specified disorders of veins; E11.40 Type 2 diabetes mellitus with diabetic neuropathy, unspecified; R74.01 Elevation of levels of liver transaminase levels; Z68.30 Body mass index [BMI] 30.0-30.9, adult; I25.2 Old myocardial infarction; Z87.891 Personal history of nicotine dependence; Z95.0 Presence of cardiac pacemaker; Z95.1 Presence of aortocoronary bypass graft; Z79.899 Other long term (current) drug therapy
CPT/HCPCS: 36415; 37224; 37228; 71045; 72128; 72131; 73630; 75635; 75710; 76770; 76937; 80048; 80053; 82550; 82962; 85025; 85347; 86038; 86160; 87426; 93923; 93970; 93971; 94640; 97162; 97530; 97535; 99285; C1725; C1760; C1769; C1893; C1894; C2623; J0696; J1200; J1644; J1650; J1815; J2250; J2270; J3010; J3490; J7030; J7060; Q9967